=== PATIENT | male | born 1950 | race Caucasian/White ===

== ENCOUNTER 2020-01-18 22:59 | Emergency (ER) | payer BC, OTHER ==
[~2020-01-18] VITALS: Ht 182.9 cm; Wt 72.6 kg
[~2020-01-18 22:59] MED LIST: HTN med PO; [UNRECOGNIZED DRUG - REMARK] PO
--- NOTE | 2020-01-18 23:05 | NUR ---
Patient walked into ER c/o lip swelling due to allergic reaction that started at 2100 today. Patient states he took benadryl and claratin [employer] but not effect to decrease swelling of lip. Patient denies SOB,CP. Able to speak clearly in full sentance with no distress noted. No hives noted.
--- NOTE | 2020-01-18 23:07 | NUR ---
Dr Arguelles into eval patient.
[2020-01-18] MEDS ORDERED: FAMOTIDINE. 20 MG/2 ML VIAL IV ONE ×2 (23:15→23:19)
[2020-01-18] MEDS ORDERED: methylPREDNISolone SOD SUCC 125 MG/2 ML VIAL IV ONE (23:15)
[2020-01-18] MEDS ORDERED: diphenhydrAMINE 50 MG/1 ML VIAL IV ONE (23:15)
[2020-01-18] MEDS ORDERED: methylPREDNISolone SOD SUCC 125 MG/2 ML VIAL ONE (23:18)
[2020-01-18] MEDS ORDERED: diphenhydrAMINE 50 MG/1 ML VIAL ONE (23:18)
--- NOTE | 2020-01-19 00:08 | NUR ---
IV removed. Catheter intact and site benign. Pressure and 4x4 gauze applied to site. No bleeding noted.
--- NOTE | 2020-01-19 00:10 | NUR ---
Patient discharged to home in stable condition. Written and verbal after care instructions given. Patient verbalizes understanding of instructions. Stressed follow up or return to ER for worsening s/s.
[2020-01-19 00:12] VITALS: BP 125/88
== END 2020-01-19 00:13 | disposition home or self-care (01) ==
LOC: ER 23:07
DX: T78.3XXA Angioneurotic edema, initial encounter (principal); I10 Essential (primary) hypertension; E78.00 Pure hypercholesterolemia, unspecified; Z91.018 Allergy to other foods; Z79.899 Other long term (current) drug therapy
CPT/HCPCS: 96374; 96375; 99284; J1200; J2930; J3490; A4663